=== PATIENT | female | born 2000 | race African-American/Black ===

== ENCOUNTER 2022-04-28 23:15 | Observation (INO) | payer OTHER ==
[~2022-04-28] VITALS: Ht 172.7 cm; Wt 72.6 kg
[2022-04-29] MEDS ORDERED: ACETAMINOPHEN 500MG TABLET PO PRN (00:45)
[2022-04-29] MEDS: LACTATED RINGERS 1,000 ML IV SCH ×2 (00:53→02:00)
[2022-04-29 01:35] LABS: BASOPHILS % 0.7 % (0.0-2.0); HEMATOCRIT. 30.5 % (36.0-48.0); HEMOGLOBIN. 10.4 g/dL (12.0-16.0); LYMPHOCYTES % 24.1 % (20.0-50.0); MEAN CORPUSCULAR HEMOGLOBIN 28.6 pg (28.0-32.0); MEAN CORPUSCULAR VOLUME 83.8 fL (81.0-99.0); MONOCYTES % 7.8 % (2.0-8.0); NEUTROPHILS % 66.4 % (40.0-76.0); PLATELET 287 x1000/uL (130-400); RED BLOOD CELL COUNT 3.64 mill/uL (4.2-5.4); RED CELL DISTRIBUTION WIDTH 12.8 % (11.6-14.6)
[2022-04-29 01:51] LABS: CLARITY URINE CLEAR (CLEAR); COLOR URINE YELLOW (YELLOW); KETONES URINE NEGATIVE (NEGATIVE); LEUKOCYTE ESTERASE URINE 2+ (NEGATIVE); NITRITE URINE NEGATIVE (NEGATIVE); OCCULT BLOOD URINE NEGATIVE (NEGATIVE); PROTEIN URINE NEGATIVE (NEGATIVE); SPECIFIC GRAVITY URINE 1.019 (1.005-1.030); UROBILINOGEN URINE 0.2 E.U./dL (0.2-1.0)
[2022-04-29] MEDS ORDERED: PREN1TAB23 PO (02:56)
== END 2022-04-29 03:15 | disposition home or self-care (01) ==
LOC: ER 23:15 → 8 EST LDRP 23:20
PROVIDERS: ADMIT Obstetrics & Gynecology; ATTEND Obstetrics & Gynecology
DX: O26.892 Other specified pregnancy related conditions, second trimester (principal); R10.30 Lower abdominal pain, unspecified; Z3A.21 21 weeks gestation of pregnancy
CPT/HCPCS: 36415; 59025; 81003; 85025; 96360; 96361; G0378; 99281